=== PATIENT | male | born 1955 | race Caucasian/White ===

== ENCOUNTER 2022-10-21 10:57 | Emergency (ER) | payer MEDICARE, OTHER ==
[2022-10-21 11:35] LABS: ESTIMATED GFR 84 mL/min (>60)
[2022-10-21 12:32] LABS: CORONAVIRUS COVID-19 NAA NEGATIVE (NEGATIVE)
== END 2022-10-21 13:13 | disposition home or self-care (01) ==
LOC: FB.ED 10:57
DX: K52.9 Noninfective gastroenteritis and colitis, unspecified (principal); Z20.822 Contact with and (suspected) exposure to COVID-19; Z91.09 Other allergy status, other than to drugs and biological substances
CPT/HCPCS: 0241U; 36415; 80053; 81001; 83735; 83880; 84484; 85025; 93005; 99284